=== PATIENT | male | born 1970 | race Caucasian/White ===

== ENCOUNTER 2020-10-06 06:50 | Emergency (ER) | payer SELFPAY ==
--- NOTE | 2020-10-06 07:14 | EDM.PDOC ---
ED HPI GENERAL MEDICAL PROBLEM - General Chief Complaint: Respiratory Problem Stated Complaint: [facility] Time Seen by Provider: 10/06/20 07:14 - History of Present Illness INITIAL COMMENTS - FREE TEXT/NARRATIVE: 50-year-old male presents the emergency room with shortness of breath. For the last 4 days patient has had upper respiratory tract congestion and symptoms. This morning when he awoke he had significant congestion postnasal drip went into a coughing fit and became very short of breath. He called EMS. They gave him a breathing treatment that seemed to help. Patient has no history of underlying asthma or reactive airway disease. Patient is treated for hyperlipidemia. He has been using quite a bit of [id number] decongestants as well as sinus irrigation. Patient has reflux but this has been well controlled he has no abdominal pain no nausea no vomiting. Patient is not aware of any fevers or chills. Patient has had exposure to people with similar symptoms. He has a nephew that was checked out and they thought maybe he had allergic rhinitis. - Related Data Allergies Allergy/AdvReac Type Severity Reaction Status Date / Time No Known Allergies Allergy Verified 10/06/20 06:55 Home Meds: Home Meds Amoxicillin 1,000 mg PO BID #28 tab 10/06/20 [Rx] Past Medical History Cardiovascular History: Reports: High Cholesterol, Hypertension Gastrointestinal History: Reports: GERD - Past Surgical History HEENT Surgical History: Reports: ASIFIK Social & Family History - Tobacco Use Tobacco Use Status *Q: Former Tobacco User Used Tobacco, but Quit: Yes Month/Year Tobacco Last Used: 1999 - Alcohol Use Days Per Week of Alcohol Use: 7 Number of Drinks Per Day: 3 Total Drinks Per Week: 21 - Recreational Drug Use Recreational Drug Use: No ED ROS GENERAL - Review of Systems Review Of Systems: See Below Constitutional: Reports: No Symptoms HEENT: Reports: Rhinitis, Sinus Problem Respiratory: Reports: Shortness of Breath, Cough Cardiovascular: Denies: Chest Pain Endocrine: Reports: No Symptoms GI/Abdominal: Reports: No Symptoms : Reports: No Symptoms Musculoskeletal: Reports: No Symptoms Skin: Reports: No Symptoms Neurological: Reports: No Symptoms ED EXAM, GENERAL - Physical Exam Exam: See Below Exam Limited By: No Limitations General Appearance: Alert, No Apparent Distress, Obese Eye Exam: Bilateral Eye: Normal Inspection Ears: Normal External Exam, Normal Canal, Hearing Grossly Normal, Normal TMs Nose: Normal Inspection, Normal Mucosa, No Blood, Clear Rhinorrhea Throat/Mouth: Normal Inspection, Normal Lips, Normal Teeth, Normal Gums, Normal Oropharynx, Normal Voice, No Airway Compromise Head: Atraumatic, Normocephalic Neck: Normal Inspection, Supple, Non-Tender. No: Lymphadenopathy (L), Lymphadenopathy (R) Respiratory/Chest: No Respiratory Distress, Lungs Clear, Normal Breath Sounds Cardiovascular: Regular Rate, Rhythm, No Edema, No Murmur GI/Abdominal: Normal Bowel Sounds, Soft, Non-Tender, Other (Obese) Back Exam: Normal Inspection. No: CVA Tenderness (L), CVA Tenderness (R) Neurological: Alert, Oriented, Normal Cognition #1 Interpretation EKG Date: 10/06/20 Rhythm: Other (Mild sinus tach) Rate (Beats/Min): 107 [place]: Normal P-Wave: Present QRS: Normal ST-T: Other (Nonspecific nondiagnostic changes) QT: Normal Comparison: NA - No Prior EKG EKG Interpretation Comments: Sinus tach mild otherwise nondiagnostic EKG Course - Vital Signs Last Recorded V/S: Last Vital Signs Temp 36.4 C 10/06/20 06:55 Pulse 113 H 10/06/20 06:55 Resp 20 10/06/20 06:55 BP 150/107 H 10/06/20 06:55 Pulse Ox 94 L 10/06/20 07:40 - Orders/Labs/Meds Orders: Active Orders 24 hr Category Date Time Status EKG Documentation Completion [RC] STAT Care 10/06/20 07:20 Active RT Post Treatment Assessment [RC] Click to Edit Care 10/06/20 07:21 Active RT Pre-Treatment Assessment [RC] Click to Edit Care 10/06/20 07:21 Active Labs: Laboratory Tests 10/06/20 10/06/20 10/06/20 Range/Units 07:30 07:39 07:39 WBC 9.22 H (4.23-9.07) K/mm3 RBC 5.31 (4.63-6.08) M/mm3 Hgb 15.6 (13.7-17.5) gm/dl Hct 45.7 (40.1-51.0) % MCV 86.1 (79.0-92.2) fl MCH 29.4 (25.7-32.2) pg MCHC 34.1 (32.2-35.5) g/dl RDW Std Deviation 42.5 (35.1-43.9) fL Plt Count 184 (163-337) K/mm3 MPV 10.0 (9.4-12.3) fl Neut % (Auto) 74.4 H (34.0-67.9) % Lymph % (Auto) 13.0 L (21.8-53.1) % [place] % (Auto) 10.3 (5.3-12.2) % Eos % (Auto) 1.6 (0.8-7.0) Baso % (Auto) 0.5 (0.1-1.2) % Neut # (Auto) 6.85 H (1.78-5.38) K/mm3 Lymph # (Auto) 1.20 L (1.32-3.57) K/mm3 [place] # (Auto) 0.95 H (0.30-0.82) K/mm3 Eos # (Auto) 0.15 (0.04-0.54) K/mm3 Baso # (Auto) 0.05 (0.01-0.08) K/mm3 Sodium 145 (136-145) mEq/L Potassium 3.9 (3.5-5.1) mEq/L Chloride 106 (98-107) mEq/L Carbon Dioxide 25 (21-32) mEq/L Anion Gap 17.9 H (5-15) BUN 9 (7-18) mg/dL Creatinine 1.1 (0.7-1.3) mg/dL Est Cr Clr Drug Dosing 87.20 mL/min Estimated GFR (MDRD) > 60 (>60) mL/min BUN/Creatinine Ratio 8.2 L (14-18) Glucose 191 H (70-99) mg/dL Calcium 8.6 (8.5-10.1) mg/dL Total Bilirubin 0.8 (0.2-1.0) mg/dL AST 25 (15-37) U/L ALT 56 (16-63) U/L Alkaline Phosphatase 57 (46-116) U/L Troponin I < 0.017 (0.00-0.056) ng/mL Total Protein 7.4 (6.4-8.2) g/dl Albumin 4.1 (3.4-5.0) g/dl Globulin 3.3 gm/dL Albumin/Globulin Ratio 1.2 (1-2) SARS-CoV-2 RNA (KATELIN) Negative (NEGATIVE) Meds: Medications Discontinued Medications Generic Name Dose Route Start Last Admin Trade Name Sumi PRN Reason Stop Dose Admin Albuterol 0 gm 10/06/20 07:21 10/06/20 07:39 Albuterol 6.7 Gm Inhaler INH 10/06/20 07:22 2 dose ONETIME ONE Administration Diphenhydramine HCl 50 mg 10/06/20 08:19 10/06/20 08:43 Diphenhydramine 50 Mg/Ml Sdv IVPUSH 10/06/20 08:20 50 mg ONETIME ONE Administration Epinephrine HCl 0.3 mg 10/06/20 09:09 10/06/20 09:23 Epinephrine 1 Mg/Ml Sdv IM 10/06/20 09:10 0.3 mg ONETIME ONE Administration Famotidine 20 mg 10/06/20 08:19 10/06/20 08:43 Famotidine 20 Mg/2 Ml Sdv IVPUSH 10/06/20 08:20 20 mg ONETIME ONE Administration Methylprednisolone Sodium Succinate 125 mg 10/06/20 08:19 10/06/20 08:44 Methylprednisolone Sodium Succinate 125 Mg/2 Ml Sdv IVPUSH 10/06/20 08:20 125 mg ONETIME ONE Administration - Re-Assessments/Exams Free Text/Narrative Re-Assessment/Exam: 10/06/20 07:36 His Accu-Chek was 110. 10/06/20 08:04 Chest x-ray shows no acute cardiopulmonary changes 10/06/20 08:20 Patient was trying to clear some secretions and developed some neck tightness and difficulty swallowing. This did improve over time. His breath sounds were clear other than a single expiratory wheeze. Examination of the oropharynx showed some mild redness possible mild swelling. We'll give him some Solu-Medrol Benadryl and Pepcid at the time I left the patient's room he was doing much better. 10/06/20 08:25 10/06/20 09:10 The patient has received Pepcid Solu-Medrol and Benadryl, with no significant improvement he still having this neck tightness. I will try some IM epi. 10/06/20 11:32 Patient is doing better at this point he is not back to normal. Was considering a soft tissue neck CT to further evaluate for true obstruction. And his chest x-ray was unremarkable. I did discuss this further evaluation with the patient and he urgently actually to discharge him he says overall is doing quite a bit better yet I still mildly symptomatic but nothing like he was and he would just like to go home. His postnasal drip seems to be causing this obstructive light but facility has and the tickle in his throat. Departure - Departure Time of Disposition: 11:33 Disposition: Home, Self-Care 01 Clinical Impression: Sinus congestion, Acute sinusitis - Discharge Information Prescriptions: Amoxicillin 1,000 mg PO BID #28 tab Referrals: Olga Phelps NP [Primary Care Provider] - Forms: ED Department Discharge Additional Instructions: Return to the emergency room with any questions problems or worsening symptoms. You have been started on amoxicillin this is an antibiotic take to 500 mg tablets twice daily until all gone you should take this for 7 days. This has been sent electronically to the [place] pharmacy in the [facility] [employer] [facility]. Continue the sinus irrigation do this at least 4 times a day. Avoid [id number] decongestants. You have been given a albuterol inhaler use this 2 puffs every 4 hours while awake. Follow-up in the clinic with your regular healthcare provider early this next week if needed for recheck. Sepsis Event Note (ED) - Evaluation Sepsis Screening Result: No Definite Risk - Focused Exam Vital Signs: Vital Signs Temp Pulse Resp BP Pulse Ox Pulse Ox 10/06/20 07:40 94 L 10/06/20 06:55 36.4 C 113 H 20 150/107 H 91 L - My Orders Last 24 Hours: My Active Orders 10/06/20 07:20 EKG Documentation Completion [RC] STAT 10/06/20 07:21 RT Post Treatment Assessment [RC] Click to Edit RT Pre-Treatment Assessment [RC] Click to Edit - Assessment/Plan Last 24 Hours: My Active Orders 10/06/20 07:20 EKG Documentation Completion [RC] STAT 10/06/20 07:21 RT Post Treatment Assessment [RC] Click to Edit RT Pre-Treatment Assessment [RC] Click to Edit
[2020-10-06] MEDS ORDERED: Albuterol 6.7 GM Inhaler INH ONE (07:21)
[2020-10-06] MEDS ORDERED: methylPREDNISolone Sodium Succinate 125 MG/2 ML SDV IVPUSH ONE (08:19)
[2020-10-06] MEDS ORDERED: Famotidine 20 MG/2 ML SDV IVPUSH ONE (08:19)
[2020-10-06] MEDS ORDERED: diphenhydrAMINE 50 MG/ML SDV IVPUSH ONE (08:19)
--- NOTE | 2020-10-06 08:37 | CR ---
Chest: Portable view of the chest was obtained. Comparison: No prior chest imaging is available. Minimal atelectasis or scarring is seen within the left lung base. Lungs otherwise are clear with no acute parenchymal change. Heart size and mediastinum are normal. Bony structure show nothing acute. Impression: 1. Slight atelectasis or scarring within the left lung base. 2. Nothing acute is seen on portable chest x-ray. Diagnostic code #2
[2020-10-06] MEDS ORDERED: EPINEPHrine 1 MG/ML SDV IM ONE (09:09)
== END 2020-10-06 11:45 | disposition home or self-care (01) ==
LOC: SUPCPDRO 06:50 → JD.ED 06:50
DX: J01.90 Acute sinusitis, unspecified (principal); E78.00 Pure hypercholesterolemia, unspecified; I10 Essential (primary) hypertension; Z87.891 Personal history of nicotine dependence; Z20.822 Contact with and (suspected) exposure to COVID-19
CPT/HCPCS: 36415; 71045; 80053; 84484; 85025; 87635; 93005; 94640; 96372; 96374; 96375; 99285; A9270; J0171; J1200; J2930; J3490; U0002